=== PATIENT | female | born 1945 | race Caucasian/White ===

== ENCOUNTER 2019-01-10 07:11 | Day surgery (SDC) | payer MEDICARE ==
[2019-01-10] MEDS ORDERED: Propofol 200 MG/20 ML SDV ONE (07:13)
[2019-01-10] MEDS ORDERED: fentaNYL 100 MCG/2 ML SDV ONE (07:13)
[2019-01-10] MEDS ORDERED: Sodium Chloride 0.9% 1,000 ML IV SCH (08:00)
[2019-01-10 09:17] VITALS: BP 169/84; PULSE 55
--- NOTE | 2019-01-10 15:13 | OR ---
DATE OF PROCEDURE: 01/10/2019 SURGEON: Antonio Cummings MD PROCEDURE: Esophagogastroduodenoscopy. FINDINGS: Normal esophagogastroduodenoscopy. COMPLICATIONS: None. [employer] PROFESSOR: None. PREOPERATIVE DIAGNOSIS: Anemia. POSTOPERATIVE DIAGNOSIS: Anemia. RISKS: Risks, benefits, alternatives, and limitations including but not limited to infection, bleeding, and perforation were explained to the patient who wished to proceed. PROCEDURE IN DETAIL: The patient was placed in left lateral decubitus position. Esophagogastroduodenoscopy scope was introduced and advanced atraumatically to the second part of the duodenum. No evidence of duodenitis or ulceration. In the stomach itself, there was no evidence of old or new blood. No gastritis. No ulceration. The esophagus was normal. A small sliding hernia was noticed. The esophagus was normal. The patient tolerated the procedure well. Antonio Cummings MD /[id number]
== END 2019-01-10 09:23 | disposition home or self-care (01) ==
LOC: JP.SDS 07:11
PROVIDERS: ATTEND Surgery
DX: D64.9 Anemia, unspecified (principal); K40.90 Unilateral inguinal hernia, without obstruction or gangrene, not specified as recurrent; K21.9 Gastro-esophageal reflux disease without esophagitis; I10 Essential (primary) hypertension; Z88.1 Allergy status to other antibiotic agents
CPT/HCPCS: 43235; J2704; J3010; J7030

== ENCOUNTER 2020-02-06 07:24 | Day surgery (SDC) | payer MEDICARE ==
[2020-02-06] MEDS ORDERED: Dextrose 5%-Lactated Ringers 1,000 ML IV SCH (08:00)
[2020-02-06] MEDS ORDERED: Propofol 200 MG/20 ML SDV ONE (08:35)
[2020-02-06] MEDS ORDERED: fentaNYL 100 MCG/2 ML SDV ONE (08:35)
[2020-02-06] MEDS ORDERED: Midazolam 1 MG/ML 2 ML SDV ONE (08:36)
[2020-02-06] MEDS ORDERED: Glycopyrrolate 0.2 MG/ML 2 ML SDV ONE (08:41)
[2020-02-06 09:58] VITALS: BP 162/87; PULSE 74
--- NOTE | 2020-02-12 14:55 | OR ---
DATE OF PROCEDURE: 02/06/2020 SURGEON: Peter Ravi MD PREOPERATIVE DIAGNOSIS: Family history of colon carcinoma. POSTOPERATIVE DIAGNOSES: 1. Family history of colon carcinoma. 2. Single polyp involving distal sigmoid colon. OPERATIVE PROCEDURE: Flexible colonoscopy with polypectomy by snare technique. ANESTHESIA: IV sedation. INDICATIONS FOR PROCEDURE: A 74-year-old female presenting for a screening colonoscopy. She does have a significant family history of a sister having colon carcinoma as well as her grandfather. The plan is to proceed with a colonoscopy with biopsies and/or polypectomy as indicated. Potential risks including bleeding and perforation were discussed, and the patient wishes to proceed. DETAILS OF PROCEDURE: The patient was taken to the operative room and placed in a left lateral decubitus position. IV sedation was administered, after which the initial digital rectal exam was performed and was unremarkable. Colonoscope was passed into the rectum with retroflexion revealing uncomplicated hemorrhoidal columns. Scope was eventually passed to the level of the cecum. The prep was quite good with only a small amount of liquid stool present. To that level, there were no areas of diverticulosis or colitis. There was a single polyp in the distal sigmoid colon measuring around 5 mm. This was encircled with a snare and removed by means of cautery snare technique, and sent for histologic evaluation. Otherwise, there is no additional left-sided polyps or other forms of neoplasia. The procedure was then concluded. Assuming that the present polyp is adenomatous in nature, the next colonoscopy should be scheduled in roughly 3 years. Peter Ravi MD /[id number]
== END 2020-02-06 10:14 | disposition home or self-care (01) ==
LOC: JP.SDS 07:24
PROVIDERS: ATTEND Surgery
DX: Z12.11 Encounter for screening for malignant neoplasm of colon (principal); D12.5 Benign neoplasm of sigmoid colon; Z80.0 Family history of malignant neoplasm of digestive organs; K64.9 Unspecified hemorrhoids; I10 Essential (primary) hypertension; K21.9 Gastro-esophageal reflux disease without esophagitis; Z88.8 Allergy status to other drugs, medicaments and biological substances; Z98.890 Other specified postprocedural states
CPT/HCPCS: 45385; J2250; J2704; J3010; J3490; J7121; 88305

== ENCOUNTER 2023-02-09 07:46 | Day surgery (SDC) | payer MEDICARE ==
[2023-02-09] MEDS ORDERED: Lactated Ringers 1,000 ML IV SCH (08:15)
[2023-02-09] MEDS ORDERED: Propofol 200 MG/20 ML SDV ONE (09:00)
[2023-02-09] MEDS ORDERED: fentaNYL 50 MCG/ML SDV ONE (09:00)
[2023-02-09 10:32] VITALS: BP 163/51; PULSE 55
== END 2023-02-09 10:43 | disposition home or self-care (01) ==
LOC: JP.SDS 07:46
PROVIDERS: ATTEND Family Medicine
DX: Z12.11 Encounter for screening for malignant neoplasm of colon (principal); K57.30 Diverticulosis of large intestine without perforation or abscess without bleeding; I10 Essential (primary) hypertension; I35.1 Nonrheumatic aortic (valve) insufficiency; K21.9 Gastro-esophageal reflux disease without esophagitis; Z86.010 Personal history of colon polyps; Z80.0 Family history of malignant neoplasm of digestive organs; Z88.1 Allergy status to other antibiotic agents
CPT/HCPCS: G0105; J2704; J3010; J7120